=== PATIENT | female | born 1945 | race Caucasian/White ===

== ENCOUNTER → 2020-12-01 10:56 | Outpatient (POV) | payer MEDICARE, OTHER, SELFPAY | PROVIDERS: Visit Provider Dermatology | DX: Z00.00 Encounter for general adult medical examination without abnormal findings (principal) ==

== ENCOUNTER 2022-03-25 13:48 | Emergency (ER) | payer MEDICARE, OTHER, SELFPAY ==
[2022-03-25 15:45] VITALS: BP 177/70; PULSE 62; RESP 16; TEMP 36.5; O2SAT 99; BMI 23.0
[2022-03-25 16:08] VITALS: BP 177/70; PULSE 62; RESP 16; TEMP 36.5; O2SAT 99
--- NOTE | 2022-03-25 16:16 | EXP.UTC ---
Discharge Plan Disposition Patient Disposition: Home, Self-Care Condition: Good Prescriptions Prescriptions: New benzonatate [benzonatate] 100 mg capsule 100 mg PO TIDP PRN (Reason: Cough) Qty: 30 0RF methylprednisolone 4 mg Tablets,Dose Pack 4 mg PO DIRECTED Qty: 21 0RF cefdinir 300 mg capsule 300 mg PO BID Qty: 20 0RF No Action atorvastatin 20 mg tablet 20 mg PO DAILY Qty: 30 Label Comments: TAKE 1 TABLET BY MOUTH ONCE DAILY furosemide 20 mg tablet 20 mg PO DAILY Qty: 30 Label Comments: TAKE 1 TABLET BY MOUTH ONCE DAILY ranitidine HCl 300 mg tablet 300 mg PO BID Qty: 60 Label Comments: TAKE 1 TABLET BY MOUTH TWICE DAILY sertraline 50 mg tablet 50 mg PO DAILY Qty: 30 Label Comments: TAKE 1 TABLET BY MOUTH ONCE DAILY benzonatate [Tessalon Perles] 100 mg capsule 100 mg PO TID PRN (Reason: cough) Qty: 30 0RF cefuroxime axetil 500 mg tablet 500 mg PO BID 7 Days Qty: 14 0RF albuterol sulfate 90 mcg/actuation HFA aerosol inhaler 1 puff INHALATION Q4-6H PRN (Reason: shortness of breath or wheezing) Qty: 18 0RF Referrals Follow up/Referrals: Victoriano Pena MD [Primary Care Provider] - See instructions Activity Restrictions/Add. Instructions Additional Instructions/Restrictions: Drink plenty of fluids. Take tylenol or ibuprofen for pain or fever. Take the medications as directed. Follow up with your regular doctor. GO TO THE ER FOR ANY WORSENING SYMPTOMS Clinical Impressions Clinical Impression: Otitis media, Sinusitis, Viral syndrome Instructions Patient Instructions: Middle Ear Infection, DI for Sinusitis Discharge ED Provider: Rajat Lazaro [facility] General Stated complaint: sore throat, hard time hearing, cough Mode of Arrival: Ambulatory Source of Information: Patient Limitations: No Limitations Time Seen by Provider: 03/25/22 16:16 Description of Symptoms (Recalled from Triage Doc. by RN): pt c/o sore throat, fever, and ear pain that started yesterday HEENT Symptoms (Recalled from RN notes): Yes (sore throat, ear pain) Resp Symptoms (Recalled from RN notes): No Skin Symptoms (Recalled from RN notes): No MS Symptoms (Recalled from RN notes): No Functional Status (Recalled from RN notes): na History of Present Illness Provider Complaint: She states that she has had bilateral ear pain, sinus congestion, sore throat, and a productive cough for the past 2 days. Related Data Home Medications Medication Instructions Recorded Confirmed atorvastatin 20 mg tablet 20 mg PO DAILY #30 tabs 01/12/19 01/12/19 furosemide 20 mg tablet 20 mg PO DAILY #30 tabs 01/12/19 01/12/19 ranitidine HCl 300 mg tablet 300 mg PO BID #60 tabs 01/12/19 01/12/19 sertraline 50 mg tablet 50 mg PO DAILY #30 tabs 01/12/19 01/12/19 Previous Rx's Medication Instructions Recorded albuterol sulfate 90 mcg/actuation 1 puff inhalation Q4-6H PRN 01/12/19 aerosol inhaler shortness of breath or wheezing #18 grams benzonatate 100 mg capsule 100 mg PO TID PRN cough #30 caps 01/12/19 (Yuli Tran) cefuroxime axetil 500 mg tablet 500 mg PO BID 7 days #14 tabs 01/12/19 benzonatate 100 mg capsule 100 mg PO TIDP PRN Cough #30 caps 03/25/22 cefdinir 300 mg capsule 300 mg PO BID #20 caps 03/25/22 methylprednisolone 4 mg tablets in 4 mg PO DIRECTED #21 tabs 03/25/22 a dose pack Allergies Allergy/AdvReac Type Severity Reaction Status Date / Time No Known Allergies Allergy Verified 03/25/22 15:49 Worker's Comp Is this a Worker's Comp case?: No PFSH PFSH Medical History Anxiety Depression Hypertension Social History Smoking Status: Current every day smoker alcohol intake: current substance use type: denies use current occupational status: retired Travel in the last 8 weeks: Inside the [facility] R
[2022-03-25 16:48] LABS: UTC Influenza A Antigen Negative (Negative); UTC Influenza B Antigen Negative (Negative); UTC Strep Screen (Rapid) Negative (Negative)
[2022-03-25 17:02] LABS: Adenovirus,PCR Not Detected (NotDetected); Bordetella Pertussis Not Detected (NotDetected); Chlamydophila Pneumoniae, PCR Not Detected (NotDetected); Coronavirus 19, PCR Not Detected (NotDetected); Coronavirus 229E Not Detected (NotDetected); Coronavirus NL63 Not Detected (NotDetected); Coronavirus OC43 Not Detected (NotDetected); Coronovirus HKU1,PCR Not Detected (NotDetected); Human Metapneumovirus Not Detected (NotDetected); Influenza A, PCR Not Detected (NotDetected); Influenza AH1, 2009 Not Detected (NotDetected); Influenza AH1, PCR Not Detected (NotDetected); Influenza AH3,PCR Not Detected (NotDetected); Influenza B, PCR Not Detected (NotDetected); Mycoplasma Pneumoniae, PCR Not Detected (NotDetected); Parainfluenza 1, PCR Not Detected (NotDetected); Parainfluenza 2, PCR Not Detected (NotDetected); Parainfluenza 3, PCR Not Detected (NotDetected); Parainfluenza 4, PCR Not Detected (NotDetected); Rhinovirus/Enterovirus Not Detected (NotDetected)
[2022-03-25 20:08] LABS: Respiratory Syncytial Virus Not Detected (NotDetected)
== END 2022-03-25 17:00 | disposition home or self-care (01) ==
PROVIDERS: Emergency Provider Nurse Practitioner Family; PCP Internal Medicine Adolescent Medicine
DX: J32.9 Chronic sinusitis, unspecified (principal); H66.90 Otitis media, unspecified, unspecified ear
CPT/HCPCS: 87581; 87632; 87798; 87804; 87880; 99212; C9803; G0463; U0003; U0005

== ENCOUNTER → 2022-09-27 10:04 | Outpatient (CLI) | payer MEDICARE, OTHER, SELFPAY ==
[2022-09-27 10:26] LABS: Basophils % 0.4 % (0.1-2.0); Eosinophils # 0.2 K/mm3 (0.0-0.4); Eosinophils % 3.7 % (0.1-12.0); Hematocrit 37.6 % (37.0-47.0); Hemoglobin 12.1 g/dL (12.2-16.2); Lymphocytes # 1.4 K/mm3 (0.7-4.5); Lymphocytes % 24.9 % (10-50); Mean Corpuscular HGB Conc 32.2 g/dL (31.8-35.4); Mean Corpuscular Hemoglobin 30.8 pg (27.0-31.2); Mean Corpuscular Volume 95.7 fl (81-99); Mean Platelet Volume 9.3 fl (7.4-10.4); Monocytes # 0.3 K/mm3 (0.1-1.0); Monocytes % 5.6 % (1.7-9.3); Neutrophils # 3.6 K/mm3 (1.8-7.8); Neutrophils % 65.3 % (37.0-80.0); Platelet Count 174 K/mm3 (142-424); Red Blood Count 3.93 M/mm3 (4.20-5.40); Red Cell Distribution Width 13.5 % (11.5-17.5); White Blood Count 5.4 K/mm3 (4.8-10.8)
[2022-09-27 10:59] LABS: Alanine Aminotransferase 17 U/L (12-78); Albumin/Globulin Ratio 1.8 (1.1-1.8); Alkaline Phosphatase 95 U/L (38-126); Anion Gap 13.1 mEq/L (5-15); Aspartate Amino Transferase 25 U/L (14-36); Bilirubin,Total 0.8 mg/dl (0.2-1.3); Blood Urea Nitrogen 19 mg/dl (7-17); Calcium 9.2 mg/dl (8.4-10.2); Carbon Dioxide 27 mmol/L (22.0-30.0); Chloride 106 mmol/L (98-107); Chol/HDL Ratio 1.9 (1-3.5); Cholesterol 160 mg/dl (140-200); Estimated Glomerular Filt Rate 70 ml/min (>60); GFR (African American) 85 ML/MIN (>60); Globulin 2.2 g/dL (1.3-3.2); Glucose 89 mg/dl (74-100); HDL Cholesterol 85 mg/dl (40-60); Potassium 4.1 mmoL/L (3.5-5.1); Sodium 142 mmol/L (136-145); Total Protein,Serum 6.2 g/dl (6.3-8.2); Triglycerides 96 mg/dl (30-150); VLDL Cholesterol 19 mg/dL (0-40)
[2022-09-27 11:11] LABS: Direct LDL Cholesterol 64.37 mg/dL (100-129)
[2022-09-27 11:50] LABS: Vitamin B12 300 pg/mL (239-931)
== END ==
PROVIDERS: PCP Nurse Practitioner Family; Visit Provider Nurse Practitioner Family
DX: Z00.00 Encounter for general adult medical examination without abnormal findings (principal); I10 Essential (primary) hypertension; E53.8 Deficiency of other specified B group vitamins
CPT/HCPCS: 36415; 80053; 80061; 82607; 85025

== ENCOUNTER 2024-10-18 16:13 | Outpatient (CLI) | payer MEDICARE, OTHER, SELFPAY ==
--- NOTE | 2024-10-18 16:18 | XR_ITS ---
PROCEDURE INFORMATION: Exam: XR Left Knee Exam date and time: 10/18/2024 4:20 PM Age: 79 years old Clinical indication: Pain; Knee; Left TECHNIQUE: Imaging protocol: Radiologic exam of the left knee. Views: 3 views. COMPARISON: No relevant prior studies available. FINDINGS: Bones/joints: Severe tricompartmental degenerative changes, most severe in the medial compartment. Soft tissues: Normal. IMPRESSION: Severe tricompartmental degenerative changes, most severe in the medial compartment.
--- NOTE | 2024-10-18 16:18 | XR_ITS ---
PROCEDURE INFORMATION: Exam: XR Right Knee Exam date and time: 10/18/2024 4:20 PM Age: 79 years old Clinical indication: Pain; Knee; Right; Additional info: Pain in joint of right and left knee TECHNIQUE: Imaging protocol: Radiologic exam of the right knee. Views: 3 views. COMPARISON: No relevant prior studies available. FINDINGS: Bones/joints: Severe tricompartmental degenerative changes right knee, most severe in the medial compartment with [id number] articulation. Soft tissues: Normal. IMPRESSION: Degenerative changes, mostly in the medial compartment.
== END 2024-10-18 23:59 | disposition home or self-care (01) ==
LOC: RAD 16:15
PROVIDERS: PCP Nurse Practitioner Family; Visit Provider Nurse Practitioner Family
DX: M17.0 Bilateral primary osteoarthritis of knee (principal)
CPT/HCPCS: 73562

== ENCOUNTER 2025-03-11 04:59 | Inpatient (IN) | payer MEDICARE, OTHER, SELFPAY ==
[2025-03-11] VITALS (13 sets, daily range): BP systolic 114–171; BP diastolic 52–81; PULSE 55–79; RESP 16–20; TEMP 36.1–37; O2SAT 97–99; BMI 29.2; BMI 30.9
--- NOTE | 2025-03-11 05:17 | CT_ITS ---
PROCEDURE INFORMATION: Exam: CT Abdomen And Pelvis With Contrast Exam date and time: 03/11/2025 6:03 AM Age: 80 years old Clinical indication: Abdominal pain; Additional info: Ruq pain, nv TECHNIQUE: Imaging protocol: Computed tomography of the abdomen and pelvis with contrast. Radiation optimization: All CT scans at this facility use at least one of these dose optimization techniques: automated exposure control; mA and/or kV adjustment per patient size (includes targeted exams where dose is matched to clinical indication); or iterative reconstruction. Contrast material: ISOVUE; Contrast volume: 75 ml; Contrast route: IV; COMPARISON: No relevant prior studies available. FINDINGS: Liver: Normal variant Chilaiditi's liver. No suspicious liver mass identified. There is trace intrahepatic biliary dilatation. Gallbladder and biliary ducts: Hydropic gallbladder. There are subtle densities seen dependently within the distended gallbladder likely representing cholelithiasis. Trace pericholecystic fluid. Cholecystitis can not be excluded. Consider gallbladder ultrasound. Pancreas: The pancreas is normal in appearance. No evidence of pancreatic ductal dilatation. Spleen: Several punctate old calcified granulomas in the spleen. Adrenal glands: The adrenal glands are normal in appearance. Kidneys and ureters: The kidneys are normal in appearance. Several small simple appearing bilateral renal cysts measuring 9 mm or less. No evidence of hydronephrosis or hydroureter. No nephroureteral calculi are identified. Stomach and bowel: The small bowel loops are not thickened and are nondilated. There is colonic diverticulosis but no evidence of diverticulitis. Mobile cecum. The cecum is located in the right upper quadrant. Appendix: The appendix is normal in appearance. No evidence of appendicitis. Intraperitoneal space: Unremarkable. No free air. No significant fluid collection. Vasculature: Unremarkable. No abdominal aortic aneurysm. Lymph nodes: Unremarkable. No enlarged lymph nodes. Urinary bladder: The urinary bladder is normal in appearance. Reproductive: Unremarkable as visualized. Bones/joints: There is a grade 1 anterolisthesis of L2 over L3 and L3 over L4. No acute osseous lesions. Soft tissues: Small fat containing bilateral inguinal hernias. Tiny fat containing periumbilical hernia. IMPRESSION: 1. Hydropic gallbladder with cholelithiasis and suspected pericholecystic fluid. Acute cholecystitis is not excluded. Consider further evaluation with ultrasound. 2. Normal-variant Chilaiditi's liver. 3. Colonic diverticulosis but no evidence of diverticulitis. COMMENTS: Consistent with the [employer] [place] [employer]'s Incidental Findings Committee white paper (J Am Bin Radiol 2018): Any incidental renal lesion less than 1 cm or classified as too small to characterize, or any incidental cystic renal lesion characterized as simple-appearing, is likely benign. No follow-up imaging is recommended for these lesions per consensus recommendations based on imaging criteria.
--- NOTE | 2025-03-11 05:19 | HMH.EDGENADL ---
Discharge Plan Disposition Chief Complaint: PAIN Prescriptions Prescriptions: No Action atorvastatin 20 mg tablet 20 mg PO DAILY Qty: 30 Patient Comments: TAKE 1 TABLET BY MOUTH ONCE DAILY furosemide 20 mg tablet 20 mg PO DAILY Qty: 30 Patient Comments: TAKE 1 TABLET BY MOUTH ONCE DAILY enalapril maleate 5 mg tablet 5 mg PO DAILY omeprazole 20 mg capsule,delayed release(DR/EC) 20 mg PO DAILY escitalopram oxalate 10 mg tablet 10 mg PO DAILY memantine [Namenda] 5 mg tablet 5 mg PO BID donepezil 5 mg tablet,disintegrating 5 mg PO DAILY cyanocobalamin (vitamin B-12) 1,000 mcg/15 mL liquid 1,000 mcg PO QMONTH omega 7-uqm-lwk-fish oil [Fish Oil] 300-1,000 mg capsule,delayed release(DR/EC) 1 cap PO DAILY Referrals Follow up/Referrals: Arabella Stevenson APRN [Primary Care Provider, Medical] - See instructions Print Language Print Language: Upper Sorbian Discharge ED Provider: Ry Mckeon General Adult HPI <Ry Mckeon MD - Last Filed: 03/11/25 07:04> General Chief complaint: PAIN Stated complaint: R Mid Section Abdominal Pain; Time Seen by Provider: 03/11/25 05:00 History of Present Illness HPI narrative: 80-year-old female with history of hypertension and dementia presents for right upper quadrant pain and nausea vomiting. It started a few hours prior to arrival. Nothing like this has happened before. She reports that she still has her gallbladder and appendix. She denies any recent fever or illness. Reports she has been having normal bowel movements. Related Data Home Medications ?Medication ?Instructions ?Recorded ?Confirmed atorvastatin 20 mg tablet 20 mg PO DAILY #30 tabs 01/12/19 12/10/24 furosemide 20 mg tablet 20 mg PO DAILY #30 tabs 01/12/19 12/10/24 cyanocobalamin (vitamin B-12) 1,000 mcg PO QMONTH 12/10/24 12/10/24 1,000 mcg/15 mL oral liquid donepezil 5 mg disintegrating 5 mg PO DAILY 12/10/24 12/10/24 tablet enalapril maleate 5 mg tablet 5 mg PO DAILY 12/10/24 12/10/24 escitalopram oxalate 10 mg tablet 10 mg PO DAILY 12/10/24 12/10/24 memantine 5 mg tablet (Namenda) 5 mg PO BID 12/10/24 12/10/24 omega 8-fjp-off-fish oil 300 1 cap PO DAILY 12/10/24 12/10/24 mg-1,000 mg capsule,delayed release (Fish Oil) omeprazole 20 mg capsule,delayed 20 mg PO DAILY 12/10/24 12/10/24 release Allergies Allergy/AdvReac Type Severity Reaction Status Date / Time No Known Allergies Allergy Verified 12/10/24 09:53 [facility] <Ry Mckeon MD - Last Filed: 03/11/25 07:04> [facility] Disclaimer: The information contained in this section may have been updated after the patient was seen, as this information can be updated by other users. Medical History Rash and nonspecific skin eruption Depression Anxiety Hypertension Social History Smoking Status: Never smoker alcohol intake: current alcohol intake frequency: a few times a month substance use type: denies use current occupational status: retired Travel in the last 8 weeks?: Inside the [place] Have you lived/traveled outside US in past 30 days?: No Contact w/someone who lives/traveled outside US past 30 days?: No Exposure to someone with infectious disease in past 14 days?: No Do you have a fever (greater than 100.4 F or 38 C)?: No Have you tested positive for COVID-19?: No Exposed to someone with COVID-19 in past 14 days?: No Do you have a sore throat?: No Do you have a cough?: No Do you have any weakness?: No Do you have any diarrhea?: No Are you experiencing any unusual bleeding?: No Do you have any muscle aches/pain?: No Do you have any abdominal pain?: Yes Are you experiencing loss of taste or smell?: No Other Medical History Have you received the Pneumonia Vaccine: No <Ry Mckeon MD - Last Filed: 03/11/25 07:04> ROS Obtained: Yes All systems reviewed & no additional complaints except as documented Physical Exam <Ry Mckeon MD - Last Filed: 03/11/25 07:04> General General appearance: alert and in no apparent distress Head Head exam: atraumatic and normocephalic Eye Eye exam: Present normal appearance, PERRL and EOMI ENT ENT exam: Present normal oropharynx and normal external ear exam Neck Neck exam: Present normal inspection and full ROM Chest Chest inspection: Present normal inspection and symmetric chest wall rise; Absent tenderness Respiratory Respiratory exam: Present normal lung sounds bilaterally; Absent respiratory distress Cardiovascular Cardiovascular exam: Present regular rate and normal rhythm Abdominal Exam Abdominal exam: Present soft and tenderness (Right upper quadrant with guarding); Absent distention or guarding Extremities Exam Extremities exam: Present normal inspection; Absent edema or joint swelling Back Exam Back exam: Present normal inspection; Absent tenderness Neurological Exam Neurological exam: Present alert and oriented X3; Absent motor sensory deficit Psychiatric Psychiatric exam: Present normal affect and normal mood Skin Skin exam: Present warm, dry and normal color Lymphatic Lymphatic Findings: no adenopathy Medical Decision Making <Ry Mckeon MD - Last Filed: 03/11/25 07:04> Medical Records Medical records reviewed: Yes I reviewed the patient's medical records. Screening: Per USPSTF and CDC recommendations, given the prevalence of disease in our region, it is our hospital?s policy to screen for HIV and viral Hepatitis for all patients aged 18 and over and those with ongoing risk factors. Jose Inquiry Pt receiving controlled substance: No Jose was queried for this patient: No Vital Signs: 03/11/25 05:15 03/11/25 05:46 03/11/25 06:08 Temperature 97.0 F L Temperature Source Temporal Artery Scan Pulse Rate 55 L 79 Pulse Rate [Left Radial] 66 Respiratory Rate 18 Blood Pressure Blood Pressure [Right Arm] 171/72 H Blood Pressure Mean Blood Pressure Mean [Right Arm] 105 Blood Pressure Source [Right Arm] Automatic Cuff Blood Pressure Position [Right Arm] Supine 02 Sat by Pulse Oximetry 98 98 Oxygen Delivery Method Room Air Room Air 03/11/25 06:15 03/11/25 06:30 03/11/25 06:34 Temperature Temperature Source Pulse Rate 61 70 58 L Pulse Rate [Left Radial] Respiratory Rate Blood Pressure 153/81 H Blood Pressure [Right Arm] Blood Pressure Mean 105 Blood Pressure Mean [Right Arm] Blood Pressure Source [Right Arm] Blood Pressure Position [Right Arm] 02 Sat by Pulse Oximetry 98 98 98 Oxygen Delivery Method Room Air Room Air 03/11/25 07:00 03/11/25 07:00 Temperature Temperature Source Pulse Rate 58 L Pulse Rate [Left Radial] Respiratory Rate Blood Pressure 151/80 H Blood Pressure [Right Arm] Blood Pressure Mean 103 Blood Pressure Mean [Right Arm] Blood Pressure Source [Right Arm] Blood Pressure Position [Right Arm] 02 Sat by Pulse Oximetry 97 Oxygen Delivery Method Room Air Lab Data Lab results reviewed: Yes I reviewed the patient's lab results. Lab Results 03/11/25 05:05: Urine Color Yellow, Urine Appearance Clear, Urine pH 6.0, Ur Specific [place] >= 1.030, Urine Protein Negative, Urine Glucose (UA) Negative, Urine Ketones Negative, Urine Blood Negative, Urine Nitrate Negative, Urine Bilirubin Negative, Urine Urobilinogen 0.2, Ur Leukocyte Esterase 2+ A, Urine RBC 3-5, Urine WBC 10-20, Ur Squamous Epith Cells Occasional, Urine Bacteria 1+ 03/11/25 05:15: WBC 9.3, RBC 3.56 L, Hgb 11.7 L, Hct 34.7 L, MCV 97.5, MCH 32.9 H, MCHC 33.7, RDW 12.8, Plt Count 196, MPV 10.8 H, Neut % (Auto) 73.8, Lymph % (Auto) 19.2, [place] % (Auto) 5.2, Eos % (Auto) 1.1, Baso % (Auto) 0.5, Neut # (Auto) 6.9, Lymph # (Auto) 1.8, [place] # (Auto) 0.5, Eos # (Auto) 0.1, Baso # (Auto) 0.1, Sodium 125 L, Potassium 4.1, Chloride 104, Carbon Dioxide 27, Anion Gap -1.9 L, BUN 28 H, Creatinine 1.00, Estimated Creat Clear 53, Estimated GFR 54 L, Est GFR ( Amer) 65, Glucose 147 H, Calcium 9.1, Magnesium 1.9, Total Bilirubin 1.0, AST 39 H, ALT 24, Alkaline Phosphatase 104, Total Protein 7.4, Albumin 4.1, Globulin 3.3 H, Albumin/Globulin Ratio 1.2, Lipase 165 03/11/25 05:15 03/11/25 05:15 Orders (Tests/Meds): ED MEDICATIONS Generic Name Dose Route Start Last Admin Trade Name Freq PRN Reason Stop Dose Admin Acetaminophen 650 mg 03/11/25 07:33 Acetaminophen 325mg Tab PO 04/10/25 07:32 Q4HP PRN Fever or Mild Pain (1-3) Hydrocodone Bitart/Acetaminophen 1 tab 03/11/25 07:33 Hydrocodone/Apap 5/325 Mg Tablet PO 04/10/25 07:32 Q4HP PRN Mild to Moderate Pain (1-6) Morphine Sulfate 2 mg 03/11/25 07:33 Morphine 2mg/Ml Syringe IV 04/10/25 07:32 Q2HP PRN Severe Pain (7-10) Sodium Chloride 10 ml 03/11/25 06:10 03/11/25 06:10 Sodium Chloride 0.9% 10ml Syr (Rad Only) IV 04/10/25 06:09 10 ml NEEDED PRN Administration Maintain IV Site Discontinued Medications Generic Name Dose Route Start Last Admin Trade Name Lynette PRN Reason Stop Dose Admin Acetaminophen 1,000 mg 03/11/25 05:17 03/11/25 05:33 Acetaminophen 500mg Tab PO 03/11/25 05:18 1,000 mg ONCE ONE Administration Sodium Chloride 1,000 mls @ 999 mls/hr 03/11/25 05:30 03/11/25 05:29 Sod Chlor 0.9% 1000ml Bag IV 03/11/25 06:30 999 mls/hr .Q1H1M KAYY Administration Iopamidol 75 ml 03/11/25 06:10 03/11/25 06:10 Iopamidol-370 (76%);100ml Bottle IV 03/11/25 06:11 75 ml ONCE ONE Administration Ketorolac Tromethamine 15 mg 03/11/25 05:17 03/11/25 05:31 Ketorolac 30mg/Ml Vial IV 03/11/25 05:18 15 mg ONCE ONE Administration Morphine Sulfate 4 mg 03/11/25 05:17 03/11/25 05:32 Morphine 4mg/Ml Syringe IV 03/11/25 05:18 4 mg ONCE ONE Administration Ondansetron HCl 4 mg 03/11/25 05:17 03/11/25 05:30 Ondansetron 4mg/2ml Vial IV 03/11/25 05:18 4 mg ONCE ONE Administration ORDERS Category Date Time Status CT abdomen pelvis w con Stat Cat Scan 03/11/25 05:17 Completed Consult to General Surgery [CONS] Stat Cons 03/11/25 07:26 Ordered CBC w/Auto Diff [Complete Blood Count Auto Diff] Stat Lab 03/11/25 05:15 Completed CMP [Comprehensive Metabolic Panel] Stat Lab 03/11/25 05:15 Completed Complete Blood Count Auto Diff AMLAB Lab 03/12/25 06:00 Ordered Comprehensive Metabolic Panel AMLAB Lab 03/12/25 06:00 Ordered HIV Combo Stat Lab 03/11/25 05:15 Received Hepatitis C Ab Qual. W/ RFX Stat Lab 03/11/25 05:15 Received Lipase Stat Lab 03/11/25 05:15 Completed Magnesium AMLAB Lab 03/12/25 06:00 Ordered Magnesium Stat Lab 03/11/25 05:15 Completed UA [Urinalysis and Microscopic] Stat Lab 03/11/25 05:05 Completed Blood Culture Stat Micro 03/11/25 05:15 Received Urine Culture Stat Micro 03/11/25 05:05 Received Medical Decision Narrative: 80-year-old female with history of hypertension and dementia presents for right upper quadrant pain with associated nausea and vomiting. History was obtained via interactive discussion with patient, family, chart review. On arrival, patient is [afebrile, hemodynamically stable, satting appropriately, alert, oriented x4, GCS 15], moving all extremities spontaneously. Full physical exam performed and significant for right upper quadrant tenderness Differential includes but is not limited to cholecystitis, choledocholithiasis, symptomatic cholelithiasis gastroenteritis, constipation, bowel obstruction, pancreatitis. Patient was given Tylenol Toradol Zofran morphine fluid bolus for symptomatic management and correction of underlying abnormalities. Workup initiated including CBC CMP lipase blood cultures CT Abdo pelvis IV UA On re-evaluation, patient reports symptomatic resolution. Laboratory workup independently interpreted by me and significant for hyponatremia with sodium 125, last sodium checked was 2 years ago and was 142. BUN mildly elevated. AST minimally elevated, bilirubin and alk phos normal. No leukocytosis. Urinalysis has 10-20 WBCs and 1+ bacteria, negative nitrates. Patient denies any urinary symptoms. Imaging independently interpreted by me and significant for distended gallbladder with small amount of sludge, no pericholecystic fluid.. See radiology read for full review of final results. At this time care handed off to oncoming physician pending CT results. <Juan Pham MD - Last Filed: 03/11/25 08:00> Vital Signs: 03/11/25 05:15 03/11/25 05:46 03/11/25 06:08 Temperature 97.0 F L Temperature Source Temporal Artery Scan Pulse Rate 55 L 79 Pulse Rate [Left Radial] 66 Respiratory Rate 18 Blood Pressure Blood Pressure [Right Arm] 171/72 H Blood Pressure Mean Blood Pressure Mean [Right Arm] 105 Blood Pressure Source [Right Arm] Automatic Cuff Blood Pressure Position [Right Arm] Supine 02 Sat by Pulse Oximetry 98 98 Oxygen Delivery Method Room Air Room Air 03/11/25 06:15 03/11/25 06:30 03/11/25 06:34 Temperature Temperature Source Pulse Rate 61 70 58 L Pulse Rate [Left Radial] Respiratory Rate Blood Pressure 153/81 H Blood Pressure [Right Arm] Blood Pressure Mean 105 Blood Pressure Mean [Right Arm] Blood Pressure Source [Right Arm] Blood Pressure Position [Right Arm] 02 Sat by Pulse Oximetry 98 98 98 Oxygen Delivery Method Room Air Room Air 03/11/25 07:00 03/11/25 07:00 Temperature Temperature Source Pulse Rate 58 L Pulse Rate [Left Radial] Respiratory Rate Blood Pressure 151/80 H Blood Pressure [Right Arm] Blood Pressure Mean 103 Blood Pressure Mean [Right Arm] Blood Pressure Source [Right Arm] Blood Pressure Position [Right Arm] 02 Sat by Pulse Oximetry 97 Oxygen Delivery Method Room Air Lab Data Lab Results 03/11/25 05:05: Urine Color Yellow, Urine Appearance Clear, Urine pH 6.0, Ur Specific Allen >= 1.030, Urine Protein Negative, Urine Glucose (UA) Negative, Urine Ketones Negative, Urine Blood Negative, Urine Nitrate Negative, Urine Bilirubin Negative, Urine Urobilinogen 0.2, Ur Leukocyte Esterase 2+ A, Urine RBC 3-5, Urine WBC 10-20, Ur Squamous Epith Cells Occasional, Urine Bacteria 1+ 03/11/25 05:15: WBC 9.3, RBC 3.56 L, Hgb 11.7 L, Hct 34.7 L, MCV 97.5, MCH 32.9 H, MCHC 33.7, RDW 12.8, Plt Count 196, MPV 10.8 H, Neut % (Auto) 73.8, Lymph % (Auto) 19.2, [place] % (Auto) 5.2, Eos % (Auto) 1.1, Baso % (Auto) 0.5, Neut # (Auto) 6.9, Lymph # (Auto) 1.8, [place] # (Auto) 0.5, Eos # (Auto) 0.1, Baso # (Auto) 0.1, Sodium 125 L, Potassium 4.1, Chloride 104, Carbon Dioxide 27, Anion Gap -1.9 L, BUN 28 H, Creatinine 1.00, Estimated Creat Clear 53, Estimated GFR 54 L, Est GFR ( Amer) 65, Glucose 147 H, Calcium 9.1, Magnesium 1.9, Total Bilirubin 1.0, AST 39 H, ALT 24, Alkaline Phosphatase 104, Total Protein 7.4, Albumin 4.1, Globulin 3.3 H, Albumin/Globulin Ratio 1.2, Lipase 165 Orders (Tests/Meds): ED MEDICATIONS Generic Name Dose Route Start Last Admin Trade Name Freq PRN Reason Stop Dose Admin Acetaminophen 650 mg 03/11/25 07:33 Acetaminophen 325mg Tab PO 04/10/25 07:32 Q4HP PRN Fever or Mild Pain (1-3) Hydrocodone Bitart/Acetaminophen 1 tab 03/11/25 07:33 Hydrocodone/Apap 5/325 Mg Tablet PO 04/10/25 07:32 Q4HP PRN Mild to Moderate Pain (1-6) Morphine Sulfate 2 mg 03/11/25 07:33 Morphine 2mg/Ml Syringe IV 04/10/25 07:32 Q2HP PRN Severe Pain (7-10) Sodium Chloride 10 ml 03/11/25 06:10 03/11/25 06:10 Sodium Chloride 0.9% 10ml Syr (Rad Only) IV 04/10/25 06:09 10 ml NEEDED PRN Administration Maintain IV Site Discontinued Medications Generic Name Dose Route Start Last Admin Trade Name Freq PRN Reason Stop Dose Admin Acetaminophen 1,000 mg 03/11/25 05:17 03/11/25 05:33 Acetaminophen 500mg Tab PO 03/11/25 05:18 1,000 mg ONCE ONE Administration Sodium Chloride 1,000 mls @ 999 mls/hr 03/11/25 05:30 03/11/25 05:29 Sod Chlor 0.9% 1000ml Bag IV 03/11/25 06:30 999 mls/hr .Q1H1M KAYY Administration Iopamidol 75 ml 03/11/25 06:10 03/11/25 06:10 Iopamidol-370 (76%);100ml Bottle IV 03/11/25 06:11 75 ml ONCE ONE Administration Ketorolac Tromethamine 15 mg 03/11/25 05:17 03/11/25 05:31 Ketorolac 30mg/Ml Vial IV 03/11/25 05:18 15 mg ONCE ONE Administration Morphine Sulfate 4 mg 03/11/25 05:17 03/11/25 05:32 Morphine 4mg/Ml Syringe IV 03/11/25 05:18 4 mg ONCE ONE Administration Ondansetron HCl 4 mg 03/11/25 05:17 03/11/25 05:30 Ondansetron 4mg/2ml Vial IV 03/11/25 05:18 4 mg ONCE ONE Administration ORDERS Category Date Time Status CT abdomen pelvis w con Stat Cat Scan 03/11/25 05:17 Completed Consult to General Surgery [CONS] Stat Cons 03/11/25 07:26 Ordered CBC w/Auto Diff [Complete Blood Count Auto Diff] Stat Lab 03/11/25 05:15 Completed CMP [Comprehensive Metabolic Panel] Stat Lab 03/11/25 05:15 Completed Complete Blood Count Auto Diff AMLAB Lab 03/12/25 06:00 Ordered Comprehensive Metabolic Panel AMLAB Lab 03/12/25 06:00 Ordered HIV Combo Stat Lab 03/11/25 05:15 Received Hepatitis C Ab Qual. W/ RFX Stat Lab 03/11/25 05:15 Received Lipase Stat Lab 03/11/25 05:15 Completed Magnesium AMLAB Lab 03/12/25 06:00 Ordered Magnesium Stat Lab 03/11/25 05:15 Completed UA [Urinalysis and Microscopic] Stat Lab 03/11/25 05:05 Completed Blood Culture Stat Micro 03/11/25 05:15 Received Urine Culture Stat Micro 03/11/25 05:05 Received Medical Decision Narrative: 80-year-old female with history of hypertension and dementia presents for right upper quadrant pain with associated nausea and vomiting. History was obtained via interactive discussion with patient, family, chart review. On arrival, patient is [afebrile, hemodynamically stable, satting appropriately, alert, oriented x4, GCS 15], moving all extremities spontaneously. Full physical exam performed and significant for right upper quadrant tenderness Differential includes but is not limited to cholecystitis, choledocholithiasis, symptomatic cholelithiasis gastroenteritis, constipation, bowel obstruction, pancreatitis. Patient was given Tylenol Toradol Zofran morphine fluid bolus for symptomatic management and correction of underlying abnormalities. Workup initiated including CBC CMP lipase blood cultures CT Abdo pelvis IV UA On re-evaluation, patient reports symptomatic resolution. Laboratory workup independently interpreted by me and significant for hyponatremia with sodium 125, last sodium checked was 2 years ago and was 142. BUN mildly elevated. AST minimally elevated, bilirubin and alk phos normal. No leukocytosis. Urinalysis has 10-20 WBCs and 1+ bacteria, negative nitrates. Patient denies any urinary symptoms. Imaging independently interpreted by me and significant for distended gallbladder with small amount of sludge, no pericholecystic fluid.. See radiology read for full review of final results. At this time care handed off to oncoming physician pending CT results. With Abana: Upon assumption of care patient is hemodynamically stable. Workup thus far reviewed by me no significant leukocytosis no transfusable anemia, no NIKKI however there is moderate hyponatremia with a normal baseline in the 140s undetermined acuity given that her last serum level was 2022. Lipase normal urinalysis interpreted by me 10-20 whites but otherwise not overtly consistent with infection. Formal CT read hydropic gallbladder with cholelithiasis suspected pericholecystic fluid, diverticulosis without evidence of diverticulitis. On repeat evaluation patient's pain was well-controlled and was not tender in the right upper quadrant. However given imaging findings, vomiting, abdominal pain, hyponatremia she will benefit from continued evaluation the case was discussed with surgery and they will evaluate the patient, the case was subsequent discussion with hospital medicine regarding management they will admit the patient to their service for continued evaluation at this time. Procedures <Ry Mckeon MD - Last Filed: 03/11/25 07:04> Risk/Benefits of Procedure(s) Were Explained: Yes Critical Care <Ry Mckeon MD - Last Filed: 03/11/25 07:04> Critical Care Time Critical Care Time: No
[2025-03-11 05:22] LABS: Microscopic, Urine URINE MICROSCOPIC (MICROSCOPIC)
[2025-03-11] MEDS: 0.9 % SODIUM CHLORIDE 1000ML 1,000 ML 999 ML IV (05:29)
[2025-03-11] MEDS: ONDANSETRON 4MG/2ML VIAL 4 MG IV (05:30)
[2025-03-11] MEDS: KETOROLAC 30MG/ML VIAL 15 MG IV (05:31)
[2025-03-11 05:32] LABS: Bilirubin,Urine Negative (Negative); Color,Urine YELLOW (Yellow); Glucose,Urine (UA) Negative (Negative); Ketones,Urine Negative (Negative); Leukocyte Esterase,Urine 2+ (Negative); PH,Urine 6.0 (5.0-8.5); Protein,Urine Negative (Negative); Specific Gravity, Urine >= 1.030 (1.005-1.030); Urobilinogen,Urine 0.2 EU/dl (0.2)
[2025-03-11] MEDS: MORPHINE 4MG/ML SYRINGE 4 MG IV (05:32)
[2025-03-11] MEDS: ACETAMINOPHEN 500MG TAB 1000 MG PO (05:33)
[2025-03-11 05:36] LABS: Hematocrit 34.7 % (37.0-47.0); Hemoglobin 11.7 g/dL (12.2-16.2); Immature Granulocytes % 0.2 %; Mean Corpuscular HGB Conc 33.7 g/dL (31.8-35.4); Mean Corpuscular Hemoglobin 32.9 pg (27.0-31.2); Mean Corpuscular Volume 97.5 fl (81-99); Nucleated Red Blood Cells % 0 %; Platelet Count 196 K/mm3 (142-424); Red Blood Count 3.56 M/mm3 (4.20-5.40); Red Cell Distribution Width-SD 45.9 fL; White Blood Count 9.3 K/mm3 (4.8-10.8)
[2025-03-11 05:44] LABS: Alanine Aminotransferase 24 U/L (12-78); Albumin Level 4.1 g/dl (3.5-5.0); Albumin/Globulin Ratio 1.2 (1.1-1.8); Alkaline Phosphatase 104 U/L (38-126); Anion Gap -1.9 mEq/L (5-15); Aspartate Amino Transferase 39 U/L (14-36); Bilirubin,Total 1.0 mg/dl (0.2-1.3); Blood Urea Nitrogen 28 mg/dl (7-17); Calcium 9.1 mg/dl (8.4-10.2); Carbon Dioxide 27 mmol/L (22.0-30.0); Chloride 104 mmol/L (98-107); Creatinine Clearance Estimated 53 mL/min (50-200); Creatinine,Serum 1.00 mg/dl (0.52-1.04); Estimated Glomerular Filt Rate 54 ml/min (>60); GFR (African American) 65 ML/MIN (>60); Globulin 3.3 g/dL (1.3-3.2); Glucose 147 mg/dl (74-100); Lipase 165 U/L (23-300); Magnesium 1.9 mg/dl (1.6-2.3); Potassium 4.1 mmoL/L (3.5-5.1); Sodium 125 mmol/L (136-145); Total Protein,Serum 7.4 g/dl (6.3-8.2)
[2025-03-11 05:54] LABS: Bacteria,Urine 1+ /lpf; Squamous Epithelial Cell,Urine Occasional #/hpf (0-5)
[2025-03-11] MEDS: IOPAMIDOL-370 (76%);100ML BOTTLE 75 ML IV (06:10)
[2025-03-11] MEDS: SODIUM CHLORIDE 0.9% 10ML SYR (RAD ONLY) 10 ML IV (06:10)
--- NOTE | 2025-03-11 07:26 | PC.NURSE ---
, surgeon regional sales engineer, paged for
--- NOTE | 2025-03-11 07:35 | EXP.HP ---
History of Present Illness *Admission Date: 03/11/25 [facility] Disclaimer: The information contained in this section may have been updated after the patient was seen, as this information can be updated by other users. Medical History Rash and nonspecific skin eruption Depression Anxiety Hypertension Social History Smoking Status: Never smoker alcohol intake: current alcohol intake frequency: a few times a month substance use type: denies use current occupational status: retired Travel in the last 8 weeks?: Inside the [place] Have you lived/traveled outside US in past 30 days?: No Contact w/someone who lives/traveled outside [place] past 30 days?: No Exposure to someone with infectious disease in past 14 days?: No Do you have a fever (greater than 100.4 F or 38 C)?: No Have you tested positive for COVID-19?: No Exposed to someone with COVID-19 in past 14 days?: No Do you have a sore throat?: No Do you have a cough?: No Do you have any weakness?: No Do you have any diarrhea?: No Are you experiencing any unusual bleeding?: No Do you have any muscle aches/pain?: No Do you have any abdominal pain?: Yes Are you experiencing loss of taste or smell?: No Other Medical History Have you received the Pneumonia Vaccine: No Meds Home Medications and Allergies Home Medications ?Medication ?Instructions ?Recorded ?Confirmed ?Type atorvastatin 20 mg tablet 20 mg PO DAILY #30 tabs 01/12/19 12/10/24 History furosemide 20 mg tablet 20 mg PO DAILY #30 tabs 01/12/19 12/10/24 History cyanocobalamin (vitamin B-12) 1,000 mcg PO QMONTH 12/10/24 12/10/24 History 1,000 mcg/15 mL oral liquid donepezil 5 mg disintegrating 5 mg PO DAILY 12/10/24 12/10/24 History tablet enalapril maleate 5 mg tablet 5 mg PO DAILY 12/10/24 12/10/24 History escitalopram oxalate 10 mg tablet 10 mg PO DAILY 12/10/24 12/10/24 History memantine 5 mg tablet (Namenda) 5 mg PO BID 12/10/24 12/10/24 History omega 6-nma-ccv-fish oil 300 1 cap PO DAILY 12/10/24 12/10/24 History mg-1,000 mg capsule,delayed release (Fish Oil) omeprazole 20 mg capsule,delayed 20 mg PO DAILY 12/10/24 12/10/24 History release New Prescriptions to Start Prescriptions: Allergies Allergy/AdvReac Type Severity Reaction Status Date / Time No Known Allergies Allergy Verified 12/10/24 09:53 Exam Data for Last 24 hours Vital signs and Labs for Last 24 Hours: Temp Pulse Resp BP Pulse Ox O2 Del Method 97.0 F L 58 L 18 151/80 H 97 Room Air 03/11/25 05:15 03/11/25 07:00 03/11/25 05:15 03/11/25 07:00 03/11/25 07:00 03/11/25 07:00 Laboratory Results - last 24 hr 03/11/25 05:05: Urine Color Yellow, Urine Appearance Clear, Urine pH 6.0, Ur Specific Ferdinand >= 1.030, Urine Protein Negative, Urine Glucose (UA) Negative, Urine Ketones Negative, Urine Blood Negative, Urine Nitrate Negative, Urine Bilirubin Negative, Urine Urobilinogen 0.2, Ur Leukocyte Esterase 2+ A, Urine RBC 3-5, Urine WBC 10-20, Ur Squamous Epith Cells Occasional, Urine Bacteria 1+ 03/11/25 05:15: WBC 9.3, RBC 3.56 L, Hgb 11.7 L, Hct 34.7 L, MCV 97.5, MCH 32.9 H, MCHC 33.7, RDW 12.8, Plt Count 196, MPV 10.8 H, Neut % (Auto) 73.8, Lymph % (Auto) 19.2, [place] % (Auto) 5.2, Eos % (Auto) 1.1, Baso % (Auto) 0.5, Neut # (Auto) 6.9, Lymph # (Auto) 1.8, [place] # (Auto) 0.5, Eos # (Auto) 0.1, Baso # (Auto) 0.1, Sodium 125 L, Potassium 4.1, Chloride 104, Carbon Dioxide 27, Anion Gap -1.9 L, BUN 28 H, Creatinine 1.00, Estimated Creat Clear 53, Estimated GFR 54 L, Est GFR ( Amer) 65, Glucose 147 H, Calcium 9.1, Magnesium 1.9, Total Bilirubin 1.0, AST 39 H, ALT 24, Alkaline Phosphatase 104, Total Protein 7.4, Albumin 4.1, Globulin 3.3 H, Albumin/Globulin Ratio 1.2, Lipase 165 I & O for Last 24 hours: Intake & Output 03/08/25 03/09/25 03/10/25 03/11/25 23:59 23:59 23:59 23:59 Weight 72.575 kg
--- NOTE | 2025-03-11 07:59 | PC.NURSE ---
speaking with via telephone.
--- NOTE | 2025-03-11 08:07 | PC.NURSE ---
I notified HS of the need for a bed to admit to the hospitalist.
--- NOTE | 2025-03-11 08:07 | PC.NURSE ---
er talked to dr arce and dr alejandro and patient will be admitted for obs and surgery will consult, pt has been accepted by hospitalist and battery recharger called for a bed, bottle house cleaners supervisor aware
--- NOTE | 2025-03-11 08:43 | PC.NURSE ---
arrived by w/c from ED
--- NOTE | 2025-03-11 08:43 | HMH.PHAINT1 ---
Pharmacy Intervention Comments: MEDICATION RECONCILIATION COMPLETED ON PATIENT USING EXTERNAL FILL HISTORY FROM PHARMACY. -DIANNE CROWDER, CARMELAD
--- NOTE | 2025-03-11 09:38 | US_ITS ---
FINAL REPORT TECHNIQUE: Multiple transverse and longitudinal images CLINICAL HISTORY: abdominal pain, suspected cholecystitis COMPARISON: CT earlier same day FINDINGS: There are tiny gallstones with sludge. Gallbladder distention is improved since her recent CT scan. No biliary ductal dilatation is appreciated. No fluid collections are seen. Limited portions of the right liver are unremarkable. Limited portions of the right kidney are unremarkable. Pancreas is largely obscured. IMPRESSION: Improved gallbladder distention with redemonstration of cholelithiasis and sludge. No gallbladder wall thickening. Reviewed, Interpreted and Dictated by Em Enrique MD Transcribed by Nini Jurado Authenticated and [facility]
[2025-03-11 09:43] LABS: Hepatitis C Ab Qual. W/ RFX NEGATIVE (Negative)
[2025-03-11 10:11] LABS: NT Pro Brain Natriuretic Pep. 100 pg/mL (0-450)
[2025-03-11 10:40] LABS: Thyroid Stimulating Hormone 0.19 uIU/mL (0.465-4.68)
[2025-03-11 10:43] LABS: Sodium,Urine Random 164.0 mmol/L (30-90)
[2025-03-11] MEDS: MEMANTINE 10MG TABLET 5 MG PO ×2 (11:26→21:05)
[2025-03-11] MEDS: ESCITALOPRAM 10MG TABLET 10 MG PO (11:26)
--- NOTE | 2025-03-11 11:29 | EXP.SURG.CON ---
History of Present Illness *Admission Date: 03/11/25 *Reason for visit:: Possible cholecystitis *History of present illness: This is a 80-year-old female seen in consultation after admission to the hospital service for evaluation regarding possible cholecystitis and hyponatremia. She describes presenting to the emergency department with increasing right upper quadrant pain and concomitant nausea/vomiting. Forwarded from emergency department evaluation: General Chief complaint: PAIN Stated complaint: R Mid Section Abdominal Pain; Time Seen by Provider: 03/11/25 05:00 History of Present Illness HPI narrative: 80-year-old female with history of hypertension and dementia presents for right upper quadrant pain and nausea vomiting. It started a few hours prior to arrival. Nothing like this has happened before. She reports that she still has her gallbladder and appendix. She denies any recent fever or illness. Reports she has been having normal bowel movements. Medical Decision Narrative: 80-year-old female with history of hypertension and dementia presents for right upper quadrant pain with associated nausea and vomiting. History was obtained via interactive discussion with patient, family, chart review. On arrival, patient is [afebrile, hemodynamically stable, satting appropriately, alert, oriented x4, GCS 15], moving all extremities spontaneously. Full physical exam performed and significant for right upper quadrant tenderness Differential includes but is not limited to cholecystitis, choledocholithiasis, symptomatic cholelithiasis gastroenteritis, constipation, bowel obstruction, pancreatitis. Patient was given Tylenol Toradol Zofran morphine fluid bolus for symptomatic management and correction of underlying abnormalities. Workup initiated including CBC CMP lipase blood cultures CT Abdo pelvis IV UA On re-evaluation, patient reports symptomatic resolution. Laboratory workup independently interpreted by me and significant for hyponatremia with sodium 125, last sodium checked was 2 years ago and was 142. BUN mildly elevated. AST minimally elevated, bilirubin and alk phos normal. No leukocytosis. Urinalysis has 10-20 WBCs and 1+ bacteria, negative nitrates. Patient denies any urinary symptoms. Imaging independently interpreted by me and significant for distended gallbladder with small amount of sludge, no pericholecystic fluid.. See radiology read for full review of final results. At this time care handed off to oncoming physician pending CT results. With Abana: Upon assumption of care patient is hemodynamically stable. Workup thus far reviewed by me no significant leukocytosis no transfusable anemia, no NIKKI however there is moderate hyponatremia with a normal baseline in the 140s undetermined acuity given that her last serum level was 2022. Lipase normal urinalysis interpreted by me 10-20 whites but otherwise not overtly consistent with infection. Formal CT read hydropic gallbladder with cholelithiasis suspected pericholecystic fluid, diverticulosis without evidence of diverticulitis. On repeat evaluation patient's pain was well-controlled and was not tender in the right upper quadrant. However given imaging findings, vomiting, abdominal pain, hyponatremia she will benefit from continued evaluation the case was discussed with surgery and they will evaluate the patient, the case was subsequent discussion with hospital medicine regarding management they will admit the patient to their service for continued evaluation at this time. PFSH PFSH Disclaimer: The information contained in this section may have been updated after the patient was seen, as this information can be updated by other users. Medical History Rash and nonspecific skin eruption Depression Anxiety Hypertension Family History (Updated 03/11/25 @ 09:29 by Marcie Mayers RN) Diabetes Cancer Hypertension Social History (Updated 03/11/25 @ 09:30 by Marcie Mayers RN) Smoking Status: Never smoker alcohol intake: current alcohol intake frequency: a few times a month substance use type: denies use current occupational status: retired Travel in the last 8 weeks?: Inside the [place] Have you lived/traveled outside US in past 30 days?: No Contact w/someone who lives/traveled outside US past 30 days?: No Exposure to someone with infectious disease in past 14 days?: No Do you have a fever (greater than 100.4 F or 38 C)?: No Have you tested positive for COVID-19?: No Exposed to someone with COVID-19 in past 14 days?: No Do you have a sore throat?: No Do you have a cough?: No Do you have any weakness?: No Do you have any diarrhea?: No Are you experiencing any unusual bleeding?: No Do you have any muscle aches/pain?: No Do you have any abdominal pain?: Yes Are you experiencing loss of taste or smell?: No Meds Home Medications and Allergies Home Medications ?Medication ?Instructions ?Recorded ?Confirmed ?Type atorvastatin 20 mg tablet 20 mg PO DAILY #30 tabs 01/12/19 03/11/25 History donepezil 5 mg disintegrating 5 mg PO HS 12/10/24 03/11/25 History tablet enalapril maleate 5 mg tablet 5 mg PO DAILY 12/10/24 03/11/25 History escitalopram oxalate 10 mg tablet 10 mg PO DAILY 12/10/24 03/11/25 History omega 6-ipw-ndc-fish oil 300 1 cap PO DAILY 12/10/24 03/11/25 History mg-1,000 mg capsule,delayed release (Fish Oil) omeprazole 20 mg capsule,delayed 20 mg PO DAILY 12/10/24 03/11/25 History release cyanocobalamin (vitamin B-12) 500 mcg IM MONTHLY 03/11/25 03/11/25 History 1,000 mcg/mL injection solution memantine 5 mg tablet 5 mg PO BID 03/11/25 03/11/25 History New Prescriptions to Start Prescriptions: Allergies Allergy/AdvReac Type Severity Reaction Status Date / Time No Known Allergies Allergy Verified 12/10/24 09:53 Exam (Inpt) Vital signs and Labs for Last 24 Hours: Temp Pulse Resp BP Pulse Ox O2 Del Method 98.6 F 56 L 20 141/75 H 99 Room Air 03/11/25 08:27 03/11/25 08:27 03/11/25 08:27 03/11/25 08:27 03/11/25 08:00 03/11/25 09:00 Laboratory Results - last 24 hr 03/11/25 05:05: Urine Color Yellow, Urine Appearance Clear, Urine pH 6.0, Ur Specific [place] >= 1.030, Urine Protein Negative, Urine Glucose (UA) Negative, Urine Ketones Negative, Urine Blood Negative, Urine Nitrate Negative, Urine Bilirubin Negative, Urine Urobilinogen 0.2, Ur Leukocyte Esterase 2+ A, Urine RBC 3-5, Urine WBC 10-20, Ur Squamous Epith Cells Occasional, Urine Bacteria 1+, Urine Sodium 164.0 H 03/11/25 05:15: WBC 9.3, RBC 3.56 L, Hgb 11.7 L, Hct 34.7 L, MCV 97.5, MCH 32.9 H, MCHC 33.7, RDW 12.8, Plt Count 196, MPV 10.8 H, Neut % (Auto) 73.8, Lymph % (Auto) 19.2, [place] % (Auto) 5.2, Eos % (Auto) 1.1, Baso % (Auto) 0.5, Neut # (Auto) 6.9, Lymph # (Auto) 1.8, [place] # (Auto) 0.5, Eos # (Auto) 0.1, Baso # (Auto) 0.1, Sodium 125 L, Potassium 4.1, Chloride 104, Carbon Dioxide 27, Anion Gap -1.9 L, BUN 28 H, Creatinine 1.00, Estimated Creat Clear 53, Estimated GFR 54 L, Est GFR ( Amer) 65, Glucose 147 H, Calcium 9.1, Magnesium 1.9, Total Bilirubin 1.0, AST 39 H, ALT 24, Alkaline Phosphatase 104, NT-Pro-B Natriuret Pep 100, Total Protein 7.4, Albumin 4.1, Globulin 3.3 H, Albumin/Globulin Ratio 1.2, Lipase 165, TSH 0.19 L, HCV Ab TINO w/Rflx PCR Qn Negative, HIV Ag/Ab Combo Qual Negative I & O for Labs for Last 24 Hours: Intake & Output 03/08/25 03/09/25 03/10/25 03/11/25 11:59 11:59 11:59 11:59 Intake Total 1000 / 1000 Balance 1000 / 1000 Weight 160 lb Constitutional: no acute distress Respiratory: Absent respiratory distress Cardiac: Absent Tachycardia GI: Present soft; Absent tenderness or rebound Comments:: Currently without significant tenderness to palpation; however, she describes just getting some pain medicine . Results Labs 03/11/25 05:15 03/11/25 05:15 Labs: Laboratory Results - last 24 hr 03/11/25 05:05: Urine Color Yellow, Urine Appearance Clear, Urine pH 6.0, Ur Specific [place] >= 1.030, Urine Protein Negative, Urine Glucose (UA) Negative, Urine Ketones Negative, Urine Blood Negative, Urine Nitrate Negative, Urine Bilirubin Negative, Urine Urobilinogen 0.2, Ur Leukocyte Esterase 2+ A, Urine RBC 3-5, Urine WBC 10-20, Ur Squamous Epith Cells Occasional, Urine Bacteria 1+, Urine Sodium 164.0 H 03/11/25 05:15: WBC 9.3, RBC 3.56 L, Hgb 11.7 L, Hct 34.7 L, MCV 97.5, MCH 32.9 H, MCHC 33.7, RDW 12.8, Plt Count 196, MPV 10.8 H, Neut % (Auto) 73.8, Lymph % (Auto) 19.2, [place] % (Auto) 5.2, Eos % (Auto) 1.1, Baso % (Auto) 0.5, Neut # (Auto) 6.9, Lymph # (Auto) 1.8, [place] # (Auto) 0.5, Eos # (Auto) 0.1, Baso # (Auto) 0.1, Sodium 125 L, Potassium 4.1, Chloride 104, Carbon Dioxide 27, Anion Gap -1.9 L, BUN 28 H, Creatinine 1.00, Estimated Creat Clear 53, Estimated GFR 54 L, Est GFR ( Amer) 65, Glucose 147 H, Calcium 9.1, Magnesium 1.9, Total Bilirubin 1.0, AST 39 H, ALT 24, Alkaline Phosphatase 104, NT-Pro-B Natriuret Pep 100, Total Protein 7.4, Albumin 4.1, Globulin 3.3 H, Albumin/Globulin Ratio 1.2, Lipase 165, TSH 0.19 L, HCV Ab TINO w/Rflx PCR Qn Negative, HIV Ag/Ab Combo Qual Negative Imaging CT scan - abdomen: report reviewed and image reviewed CT scan - pelvis: report reviewed and image reviewed Assessment and Plan *Assessment and plan (1) Acute calculous cholecystitis: Problem Comment: Currently with minimal symptomatology. White blood cell count normal. LFTs essentially normal. Status: Acute Category: Medical Code(s): K80.00 - Calculus of gallbladder with acute cholecystitis without obstruction Plan: Continue overall management as per primary service. Follow-up results of formal right upper quadrant ultrasound. Antibiotics as per primary service. 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 (3) Hyponatremia: Status: Acute Category: Medical Code(s): E87.1 - Hypo-osmolality and hyponatremia Plan: Management as per primary service
[2025-03-11] MEDS: LISINOPRIL 5MG TABLET 5 MG PO (11:33)
--- NOTE | 2025-03-11 14:12 | P.HP_ITS ---
<Statement entered by Rajat Simmons MD - 03/11/25 15:04> Rounded on patient after nurse practitioner. Personally examined and interviewed patient. Agree with exam findings and care plan as documented. History of Present Illness *Admission Date: 03/11/25 *Reason for visit:: Hyponatremia, abdominal pain, N/V *History of present illness: Ms. Snider is a 80-year-old female who presented to the emergency department with complaints of right upper quadrant pain, nausea, and vomiting. Per patient report she started experiencing pain around 3 AM and it was progressively getting worse. She had multiple episodes of vomiting and continues to have nausea. She has a known primary medical history of GERD, dementia, mood disorder, hypertension, and hyperlipidemia. Workup in the emergency department was significant for hyponatremia with a sodium of 125, urinalysis showing WBCs 10?20, 1+ leuk esterase, 1+ bacteria. CT abdomen/pelvis showed distended gallbladder with small amount of sludge. Patient denies fever, chills, diarrhea, chest pain, shortness of breath. [facility] Disclaimer: The information contained in this section may have been updated after the carley pfeiffer was seen, as this information can be updated by other users. Medical History Rash and nonspecific skin eruption Depression Anxiety Hypertension Family History (Updated 03/11/25 @ 09:29 by Marcie Mayers RN) Other Cancer Diabetes Hypertension Social History (Updated 03/11/25 @ 09:30 by Marcie Mayers RN) Smoking Status: Never smoker alcohol intake: current alcohol intake frequency: a few times a month substance use type: denies use current occupational status: retired Travel in the last 8 weeks?: Inside the [place] Have you lived/traveled outside US in past 30 days?: No Contact w/someone who lives/traveled outside US past 30 days?: No Exposure to someone with infectious disease in past 14 days?: No Do you have a fever (greater than 100.4 F or 38 C)?: No Have you tested positive for COVID-19?: No Exposed to someone with COVID-19 in past 14 days?: No Do you have a sore throat?: No Do you have a cough?: No Do you have any weakness?: No Do you have any diarrhea?: No Are you experiencing any unusual bleeding?: No Do you have any muscle aches/pain?: No Do you have any abdominal pain?: Yes Are you experiencing loss of taste or smell?: No Other Medical History Have you received the Flu Vaccine for this season: Yes Have you received the Pneumonia Vaccine: Yes Review of Systems *Gastrointestinal Gastrointestinal: Denies diarrhea, Reports nausea and Reports vomiting *Genitourinary Genitourinary: Denies dysuria, Denies urinary hesitancy and Denies urinary urgency Meds Home Medications and Allergies Home Medications ?Medication ?Instructions ?Recorded ?Confirmed ?Type atorvastatin 20 mg tablet 20 mg PO DAILY #30 tabs 12/3003/11/25 History donepezil 5 mg disintegrating 5 mg PO HS 12/10/2403/01 History tablet enalapril maleate 5 mg tablet 5 mg PO DAILY 12/10/24 1 05/11/24 History escitalopram oxalate 10 mg tablet 10 mg PO DAILY 12/1003/11/25 History omega 5-yua-bdk-fish oil 300 1 cap PO DAILY 12/10/24 1 05/11/24 History mg-1,000 mg capsule,delayed release (Fish Oil) omeprazole 20 mg capsule,delayed 20 mg PO DAILY 03/11/25 History release cyanocobalamin (vitamin B-12) 500 mcg IM MONTHLY 03/1103/11/25 History 1,000 mcg/mL injection solution memantine 5 mg tablet 5 mg PO BID 03/11/25 5 History New Prescriptions to Start Prescriptions: Allergies Allergy/AdvReac Type Severity Reaction Status Date / Time No Known Allergies Allergy Verified 12/10/24 09:53 Exam Data for Last 24 hours Vital signs and Labs for Last 24 Hours: Temp Pulse Resp BP Pulse Ox O2 Del Method 97.8 F 60 19 157/73 H 99 Room Air 03/11/25 12:00 03/11/25 12:00 03/11/25 12:00 03/11/25 12:00 03/11/25 12:00 03/11/25 12:00 Laboratory Results - last 24 hr 03/11/25 05:05: Urine Color Yellow, Urine Appearance Clear, Urine pH 6.0, Ur Specific [place] >= 1.030, Urine Protein Negative, Urine Glucose (UA) Negative, Urine Ketones Negative, Urine Blood Negative, Urine Nitrate Negative, Urine Bilirubin Negative, Urine Urobilinogen 0.2, Ur Leukocyte Esterase 2+ A, Urine RBC 3-5, Urine WBC 10-20, Ur Squamous Epith Cells Occasional, Urine Bacteria 1+, Urine Sodium 164.0 H 03/11/25 05:15: WBC 9.3, RBC 3.56 L, Hgb 11.7 L, Hct 34.7 L, MCV 97.5, MCH 32.9 H, MCHC 33.7, RDW 12.8, Plt Count 196, MPV 10.8 H, Neut % (Auto) 73.8, Lymph % (Auto) 19.2, [place] % (Auto) 5.2, Eos % (Auto) 1.1, Baso % (Auto) 0.5, Neut # (Auto) 6.9, Lymph # (Auto) 1.8, [place] # (Auto) 0.5, Eos # (Auto) 0.1, Baso # (Auto) 0.1, Sodium 125 L, Potassium 4.1, Chloride 104, Carbon Dioxide 27, Anion Gap -1.9 L, BUN 28 H, Creatinine 1.00, Estimated Creat Clear 53, Estimated GFR 54 L, Est GFR ( Amer) 65, Glucose 147 H, Calcium 9.1, Magnesium 1.9, Total Bilirubin 1.0, AST 39 H, ALT 24, Alkaline Phosphatase 104, NT-Pro-B Natriuret Pep 100, Total Protein 7.4, Albumin 4.1, Globulin 3.3 H, [place] min/Globulin Ratio 1.2, Lipase 165, TSH 0.19 L, HCV Ab TINO w/Rflx PCR Qn Negative, HIV Ag/Ab Combo Qual Negative I & O for Last 24 hours: Intake & Output 03/08/25 03/09/25 03/10/25 03/11/25 23:59 23:59 23:59 23:59 Intake Total 1000 / 1000 Balance 1000 / 1000 Weight 76.657 kg Constitutional Constitutional: no acute distress, obese and cooperative *Routine HEENT Exam Head: Present normocephalic Eye: Present EOMI and PERRL ENT: Present mucous membranes moist *Routine Neck Exam Neck: Present supple; Absent lymphadenopathy *Routine Respiratory Exam Respiratory: Present CTA bilaterally *Routine Cardiovascular Exam Cardiovascular: Present RRR *Routine Abdominal Exam Abdominal: Present soft and normoactive bowel sounds; Absent tenderness *Routine Rectal Exam Rectal:: deferred *Routine Genitalia Exam Genitalia:: deferred *Routine Extremities Exam Extremities: Absent cyanosis, clubbing or edema *Routine Skin Exam Skin: Present warm; Absent rash *Routine Neurological Exam Neurological: Present alert and oriented X3 Assessment and Plan *Assessment and plan (1) Right upper quadrant pain: Status: Acute Category: Medical Code(s): R10.11 - Right upper quadrant pain (2) Nausea and vomiting: Status: Acute Category: Medical Code(s): R11.2 - Nausea with vomiting, unspecified (3) Acute calculous cholecystitis: Problem Comment: Currently with minimal symptomatology. White blood cell count normal. LFTs essentially normal. Status: Acute Category: Medical Code(s): K80.00 - Calculus of gallbladder with acute cholecystitis without obstruction (4) Hyponatremia: Status: Acute Category: Medical Code(s): E87.1 - Hypo-osmolality and hyponatremia (5) Abnormal finding on urinalysis: Status: Acute Category: Medical Code(s): R82.90 - Unspecified abnormal findings in urine Plan Ms. Snider is a 80-year-old female who presented to the emergency department with complaints of right upper quadrant pain, nausea, and vomiting. Per patient report she started experiencing pain around 3 AM and it was progressively getting worse. She had multiple episodes of vomiting and continues to have nausea. She has a known primary medical history of GERD, dementia, mood disorder, hypertension, and hyperlipidemia. Workup in the emergency department was significant for hyponatremia with a sodium of 125, urinalysis showing WBCs 10?20, 2+ leuk esterase, 1+ bacteria. CT abdomen/pelvis showed distended gallbladder with small amount of sludge. Patient denies fever, chills, diarrhea, chest pain, shortness of breath. Dr. Zazueta, general surgery, was consulted by the ER for possible cholecystitis. Hospital medicine at that time was also consulted for admission due to hyponatremia, acute abdominal pain, nausea, vomiting. I agreed to admit the patient. Plan of care as follows: #RUQ abdominal pain #Nausea vomiting #Possible cholecystitis ?Upon my assessment of the patient, she denies abdominal pain. No pain to palpation noted. She denies currently feeling nauseous or any more episodes of vomiting. Patient was given Zofran, 1 L IV fluids, Toradol, morphine, and Tylenol in the ED. ?Dr. Zazueta assessed patient and feels she may need her gallbladder out if she continues to have pain, nausea, vomiting. Will advance patient's diet and see how she tolerates p.o. intake. ?Right upper quadrant ultrasound shows improved gallbladder distention with redemonstration of cholelithiasis and sludge. No gallbladder wall thickening. ?No leukocytosis noted, normal kidney function, blood cultures pending. ?Morphine 2 mg to every 2 hours as needed, [place] every 4 hours as needed ordered as needed for pain. Monitoring for toxicity. #Hyponatremia ? Patient found to be hyponatremic on admission, sodium 125. Patient's last sodium noted in her chart in 2022, was 142. Patient's urine sodium elevated at 164. Patient placed on a fluid restriction of 1 L daily. Recheck sodium this afternoon and in the morning. #Abnormal urinalysis ? UA shows 2+ leuk esterase, WBC 10-20, 1+ bacteria. Patient denies dysuria, urinary frequency. Will give ceftriaxone 1 g daily until urine culture results. #Dementia: Continue memantine 5 mg twice daily, donepezil 5 mg at bedtime, escitalopram 10 mg daily. #GERD: Continue omeprazole 20 mg daily. #Hypertension/hyperlipidemia: Continue atorvastatin 20 mg daily and enalapril 5 mg daily. Full code Regular diet?fluid restriction 1 L every 24 hour Ambulate as tolerated-PT/OT ordered for evaluation VTE?IPC's
[2025-03-11 14:29] LABS: Anion Gap 8.2 mEq/L (5-15); Blood Urea Nitrogen 24 mg/dl (7-17); Calcium 9.1 mg/dl (8.4-10.2); Carbon Dioxide 26 mmol/L (22.0-30.0); Chloride 106 mmol/L (98-107); Creatinine Clearance Estimated 56 mL/min (50-200); Creatinine,Serum 1.00 mg/dl (0.52-1.04); Estimated Glomerular Filt Rate 54 ml/min (>60); GFR (African American) 65 ML/MIN (>60); Glucose 123 mg/dl (74-100); Potassium 4.2 mmoL/L (3.5-5.1); Sodium 136 mmol/L (136-145)
[2025-03-11] MEDS: CEFTRIAXONE 1 GM 1 GM in 0.9 % SODIUM CHLORIDE 50 ML IV (14:44)
--- NOTE | 2025-03-11 18:40 | PC.NURSE ---
patient is a/o x4, remains on room air tolerating well. patient has had no complaints of pain or nausea since arrival to 2nd floor. tolerating regular diet well. family at bedside. call light within reach, no complaints at this time.
[2025-03-11] MEDS: ATORVASTATIN 20MG TABLET 20 MG PO (21:05)
[2025-03-11] MEDS: PANTOPRAZOLE 40MG TABLET 40 MG PO (21:05)
[2025-03-11] MEDS: MELATONIN 5MG TABLET 5 MG PO (21:15)
[2025-03-12] MEDS: ALUMINUM/MAGNESIUM/SIMETHICONE 30ML UDC 30 ML PO (00:07)
[2025-03-12 04:00] VITALS: BP 126/64; PULSE 62; RESP 16; TEMP 36.9; O2SAT 97; BMI 29.9
--- NOTE | 2025-03-12 04:30 | PC.NURSE ---
Patient is pleasantly alert and oriented x4; however, forgetfulness was noted (the patient would repeat some of the same questions or phrases additional times, history of dementia). She was observed to be resting in bed with eyes closed, respirations even and unlabored on room air, and no apparent distress throughout the majority of the night. Melatonin was administered as a sleep aid (see provider notification intervention for 21:01). Her daughter has remained at bedside. She has had complaints of passing excessive gas this shift of which a one time dose of Maalox was given for relief (see provider notification intervention for 23:31). No bowel movement this shift. Patient also reports having a sore spot on the left side of her head due to a recent fall at home; onto a concrete block, she had explained. Scheduled medications were administered per JUN. Physical assessment performed as appropriately for this shift (see nursing shift biophysical intervention). She has not had any complaints of nausea/vomiting urges or abdominal pain thus far this shift, with + without palpating. Tolerating a regular diet very well. Gets up with x1 assistance during ambulation. Hearing aid use. SCDs for VTE prophylaxis. At this time, the patient is resting in bed without any further complaints. No acute changes noted thus far. Call light within reach.
[2025-03-12 06:32] LABS: Hematocrit 28.7 % (37.0-47.0); Immature Granulocytes % 0.2 %; Mean Corpuscular HGB Conc 31.7 g/dL (31.8-35.4); Mean Corpuscular Hemoglobin 31.8 pg (27.0-31.2); Mean Corpuscular Volume 100.3 fl (81-99); Nucleated Red Blood Cells % 0 %; Platelet Count 141 K/mm3 (142-424); Red Blood Count 2.86 M/mm3 (4.20-5.40); Red Cell Distribution Width-SD 46.6 fL; White Blood Count 5.3 K/mm3 (4.8-10.8)
[2025-03-12 06:47] LABS: Alanine Aminotransferase 23 U/L (12-78); Albumin Level 2.9 g/dl (3.5-5.0); Albumin/Globulin Ratio 1.2 (1.1-1.8); Alkaline Phosphatase 84 U/L (38-126); Anion Gap 5.1 mEq/L (5-15); Aspartate Amino Transferase 29 U/L (14-36); Bilirubin,Total 0.4 mg/dl (0.2-1.3); Blood Urea Nitrogen 25 mg/dl (7-17); Calcium 8.5 mg/dl (8.4-10.2); Carbon Dioxide 27 mmol/L (22.0-30.0); Chloride 109 mmol/L (98-107); Creatinine,Serum 1.10 mg/dl (0.52-1.04); Estimated Glomerular Filt Rate 48 ml/min (>60); GFR (African American) 58 ML/MIN (>60); Globulin 2.5 g/dL (1.3-3.2); Glucose 95 mg/dl (74-100); Magnesium 1.8 mg/dl (1.6-2.3); Potassium 4.1 mmoL/L (3.5-5.1); Sodium 137 mmol/L (136-145); Total Protein,Serum 5.4 g/dl (6.3-8.2)
[2025-03-12 06:51] LABS: Hemoglobin 9.2 g/dL (12.2-16.2)
[2025-03-12 07:05] LABS: Creatinine Clearance Estimated 49 mL/min (50-200)
[2025-03-12 07:42] VITALS: BP 144/70; PULSE 60; RESP 16; TEMP 36.6; O2SAT 98
[2025-03-12] MEDS: MEMANTINE 10MG TABLET 5 MG PO (08:21)
[2025-03-12] MEDS: LISINOPRIL 5MG TABLET 5 MG PO (08:21)
[2025-03-12] MEDS: ESCITALOPRAM 10MG TABLET 10 MG PO (08:21)
--- NOTE | 2025-03-12 08:30 | EXP.SURG.PN ---
Subjective Patient reports: no new complaints and feels better Narrative: The patient states that she feels fine . She is hopeful that she will be discharged home today. Exam Data for Last 24 hours Vital signs and Labs for Last 24 Hours: Temp Pulse Resp BP Pulse Ox O2 Del Method 98 F 60 16 144/70 H 98 Room Air 03/12/25 07:42 03/12/25 07:42 03/12/25 07:42 03/12/25 07:42 03/12/25 07:42 03/12/25 07:43 Laboratory Results - last 24 hr 03/11/25 05:05: Urine Sodium 164.0 H 03/11/25 05:15: NT-Pro-B Natriuret Pep 100, TSH 0.19 L, HCV Ab TINO w/Rflx PCR Qn Negative, HIV Ag/Ab Combo Qual Negative 03/11/25 14:05: Sodium 136, Potassium 4.2, Chloride 106, Carbon Dioxide 26, Anion Gap 8.2, BUN 24 H, Creatinine 1.00, Estimated Creat Clear 56, Estimated GFR 54 L, Est GFR ( Amer) 65, Glucose 123 H, Calcium 9.1 03/12/25 04:36: WBC 5.3 D, RBC 2.86 L, Hgb 9.2 L D, Hct 28.7 L, MCV 100.3 H, MCH 31.8 H, MCHC 31.7 L, RDW 12.7, Plt Count 141 L D, MPV 10.7 H, Neut % (Auto) 61.4, Lymph % (Auto) 27.8, [place] % (Auto) 8.1, Eos % (Auto) 2.1, Baso % (Auto) 0.4, Neut # (Auto) 3.3, Lymph # (Auto) 1.5, [place] # (Auto) 0.4, Eos # (Auto) 0.1, Baso # (Auto) 0.0, Sodium 137, Potassium 4.1, Chloride 109 H, Carbon Dioxide 27, Anion Gap 5.1, BUN 25 H, Creatinine 1.10 H, Estimated Creat Clear 49, Estimated GFR 48 L, Est GFR ( Amer) 58 L, Glucose 95 D, Calcium 8.5, Magnesium 1.8, Total Bilirubin 0.4, AST 29 D, ALT 23, Alkaline Phosphatase 84, Total Protein 5.4 L D, Albumin 2.9 L D, Globulin 2.5, Albumin/Globulin Ratio 1.2 I & O for Last 24 hours: Intake & Output 03/09/25 03/10/25 03/11/25 03/12/25 11:59 11:59 11:59 11:59 Intake Total 1000 / 1000 1070 / 1070 Output Total 0 / 0 Balance 1000 / 1000 1070 / 1070 Weight 160 lb 163 lb Microbiology Reports for the Last 24 Hours: Microbiology 03/11/25 05:20 Blood Blood Culture - Preliminary NO GROWTH AFTER 24 HOURS 03/11/25 05:15 Blood Blood Culture - Preliminary NO GROWTH AFTER 24 HOURS Radiology Reports for the Last 24 Hours: Right upper quadrant ultrasound performed yesterday revealed tiny stones and sludge. No pericholecystic fluid or gallbladder wall thickening noted. Improved distention when compared to CT scan. Constitutional Constitutional: no acute distress *Routine Respiratory Exam Respiratory: Absent respiratory distress *Routine Abdominal Exam Comments: Exam deferred (patient in bathroom/brushing teeth) Progress Note: A&P Assessment and plan (1) Right upper quadrant pain: Status: Resolved Assessment and plan: Significant improvement over the past 24 hours (2) Nausea and vomiting: Status: Resolved Assessment and plan: Essentially resolved (3) Acute calculous cholecystitis: Problem details: Radiographic abnormalities on CT scan less concerning/resolved on follow-up ultrasound. Currently without symptomatology. White blood cell count remains normal. LFTs normal. Status: Ruled-out Assessment and plan: Ultrasound reveals no pericholecystic fluid and no gallbladder wall thickening. Diagnosis of acute calculous cholecystitis doubtful. Okay from surgical standpoint for discharge home with close outpatient follow-up (4) Hyponatremia: Status: Resolved
--- NOTE | 2025-03-12 09:09 | HMH.PHAAMS2 ---
- Antimicrobial Stewardship Review culture & sensitivity review Stewardship interventions: culture & sensitivity review, reviewed - no change (BLOOD AND URINE CX SHOW NO GROWTH. PATIENT ON ROCEPHIN CURRENTLY.)
--- NOTE | 2025-03-12 09:59 | HMH.PTEV ---
Physical Therapy Evaluation Rehab PT IP Evaluation Start: 03/11/25 10:59 Freq: ONCE Status: Active Protocol: Document 03/12/25 09:54 SIVAN (Rec: 03/12/25 09:58 SIVAN [id number]) Subjective/History History History Per H&P: Ms. Snider is a 80-year-old female who presented to the emergency department with complaints of right upper quadrant pain, nausea, and vomiting. Per patient report she started experiencing pain around 3 AM and it was progressively getting worse. She had multiple episodes of vomiting and continues to have nausea. She has a known primary medical history of GERD, dementia, mood disorder, hypertension, and hyperlipidemia. Workup in the emergency department was significant for hyponatremia with a sodium of 125, urinalysis showing WBCs 10?20, 1+ leuk esterase, 1+ bacteria. CT abdomen/ pelvis showed distended gallbladder with small amount of sludge. Patient denies fever, chills, diarrhea, chest pain, shortness of breath. Subjective Subjective Pt lives alone in a mobile home wit 2 MARLENE. Pt normally IND with all mobility with intermittent SPC use. Pt does not drive. [facility] How much help from another person do you currently need... Turning from your None back to your side while in a flat bed without using bedrails? Moving from lying on None back to sitting on the side of a flat bed without using bedrails? Moving to and from a None bed to a chair ( including a wheelchair)? Standing up from a None chair using your arms? (e.g., wheelchair, bedside chair) Walking in hospital None room? Climbing 3-5 steps A little with a railing? Mobility Score 23 Mobility Level [facility] Mobility 7 Walk 25 feet or more Mobility Calculator Rehab PT IP Eval Objective Appearance Patient Behavior Appropriate,Cooperative Patient Orientation Person Difficulty following none instructions Speech Pattern Clear Ambulation Patient Able to Yes Ambulate Ambulation Observation IP General Gait No Deviations/Normal Pattern Observation Ambulation Distance 15 (feet) Ambulation Assistive None Device Ambulation Ability Independent Balance Ability to Arise Able, uses arms to help Sitting Balance Steady, safe Dynamic Sitting Good Balance Ability Dynamic Standing Good Balance Ability Transfers Bed Transfer Ability Independent Sit to Stand Bed Independent Transfer Ability Rehab PT IP prob,goals,plan Problems Date of Evaluation: 03/12/25 Rehab Potential Rehab Potential Innapropriate for Skilled Therapy Discharge Plan PT Discharge Plan Pt presents at her baseline with mobility (IND) and is not appropriate for skilled acute care PT while at [facility] at this time. Eval Complexity Eval Charge Codes 79013 - Low Complexity PHYSICIAN CERTIFICATION: I certify the specified therapy services for Nitza Snider are required, authorized, and reviewed every 30 days.
--- NOTE | 2025-03-12 10:03 | P.DS_ITS ---
<Statement entered by Rajat Simmons MD - 03/12/25 13:19> Rounded on patient after nurse practitioner. Personally examined and interviewed patient. Agree with exam findings and care plan as documented. General Admission date:: 03/11/25 Discharge date: 03/12/25 HPI HPI HPI: Ms. Snidre is a 80-year-old female who presented to the emergency department with complaints of right upper quadrant pain, nausea, and vomiting. Per patient report she started experiencing pain around 3 AM and it was progressively getting worse. She had multiple episodes of vomiting and continues to have nausea. She has a known primary medical history of GERD, dementia, mood disorder, hypertension, and hyperlipidemia. Workup in the emergency department was significant for hyponatremia with a sodium of 125, urinalysis showing WBCs 10?20, 1+ leuk esterase, 1+ bacteria. CT abdomen/pelvis showed distended gallbladder with small amount of sludge. Patient denies fever, chills, diarrhea, chest pain, shortness of breath. Hospital Course Hospital Course Hospital Course: Ms. Snider is a 80-year-old female who presented to the emergency department with complaints of right upper quadrant pain, nausea, and vomiting. Per patient report she started experiencing pain around 3 AM on 03/11/2025 and it was prog ressively getting worse. She had multiple episodes of vomiting and continues to have nausea. She has a known primary medical history of GERD, dementia, mood disorder, hypertension, and hyperlipidemia. Workup in the emergency department was significant for hyponatremia with a sodium of 125, urinalysis showing WBCs 10?20, 2+ leuk esterase, 1+ bacteria. CT abdomen/pelvis showed distended gallbladder with small amount of sludge. Patient denies fever, chills, diarrhea, chest pain, shortness of breath. Dr. Zazueta, general surgery, was consulted by the ER for possible cholecystitis. Hospital medicine at that time was also consulted for admission due to hyponatremia, acute abdominal pain, nausea, vomiting. I agreed to admit the patient. Plan of care as follows: #RUQ abdominal pain, resolved #Nausea/ vomiting, resolved #Possible cholecystitis ?Physical assessment on admission and today both benign. Denies abdominal pain or tenderness to palpation. She has had no more episodes of nausea or vomiting. She has been afebrile and hemodynamically stable. Patient initially on admission was given 1 L fluid bolus, Zofran, morphine, Tylenol in the ED. Patient has not needed any antiemetics or pain medication since admission. ?Dr. Zazueta with general surgery saw the patient. Does not feel her gallbladder is acute. Right upper quadrant ultrasound showed improved gallbladder distention with redemonstration of cholelithiasis and sludge. No gallbladder wall thickening noted. Patient will follow-up as an outpatient with general surgery for possible gallbladder removal if symptoms persist. Patient tolerated p.o. diet without issues. ?No leukocytosis noted, normal kidney function, blood cultures show no growth after 24 hours. #Hyponatremia, resolved ? Patient found to be hyponatremic on admission, sodium 125. Initially placed on a fluid restriction of 1 L daily, repeated sodium 8 hours later and was within normal limits, 136. Discontinued fluid restriction and placed patient on regular diet. Repeat sodium day of discharge 137. Patient should have BMP rechecked at follow-up with PCP. #Abnormal urinalysis ? UA shows 2+ leuk esterase, WBC 10-20, 1+ bacteria. Patient denies dysuria, urinary frequency. Patient was given ceftriaxone 1 g yesterday x 1 dose. Urine culture shows no growth today. #Dementia: Continue memantine 5 mg twice daily, donepezil 5 mg at bedtime, es citalopram 10 mg daily. #GERD: Continue omeprazole 20 mg daily. #Hypertension/hyperlipidemia: Continue atorvastatin 20 mg daily and enalapril 5 mg daily. Total time spent on discharge 32 minutes in counseling, documentation, chart review, and direct care with patient. Exam Data for Last 24 hours Vital signs and Labs for Last 24 Hours: Temp Pulse Resp BP Pulse Ox O2 Del Method 98 F 60 16 144/70 H 98 Room Air 03/12/25 07:42 03/12/25 07:42 03/12/25 07:42 03/12/25 07:42 03/12/25 07:42 03/12/25 07:43 Laboratory Results - last 24 hr 03/11/25 05:05: Urine Sodium 164.0 H 03/11/25 05:15: NT-Pro-B Natriuret Pep 100, TSH 0.19 L 03/11/25 14:05: Sodium 136, Potassium 4.2, Chloride 106, Carbon Dioxide 26, Anion Gap 8.2, BUN 24 H, Creatinine 1.00, Estimated Creat Clear 56, Estimated GFR 54 L, Est GFR ( Amer) 65, Glucose 123 H, Calcium 9.1 03/12/25 04:36: WBC 5.3 D, RBC 2.86 L, Hgb 9.2 L D, Hct 28.7 L, MCV 100.3 H, MCH 31.8 H, MCHC 31.7 L, RDW 12.7, Plt Count 141 L D, MPV 10.7 H, Neut % (Auto) 61.4, Lymph % (Auto) 27.8, [place] % (Auto) 8.1, Eos % (Auto) 2.1, Baso % (Auto) 0.4, Neut # (Auto) 3.3, Lymph # (Auto) 1.5, [place] # (Auto) 0.4, Eos # (Auto) 0.1, Baso # (Auto) 0.0, Sodium 137, Potassium 4.1, Chloride 109 H, Carbon Dioxide 27, Anion Gap 5.1, BUN 25 H, Creatinine 1.10 H, Estimated Creat Clear 49, Estimated GFR 48 L, Est GFR ( Amer) 58 L, Glucose 95 D, Calcium 8.5, Magnesium 1.8, Total Bilirubin 0.4, AST 29 D, ALT 23, Alkaline Phosphatase 84, Total Protein 5.4 L D, Albumin 2.9 L D, Globulin 2.5, Albumin/Globulin Ratio 1.2 I & O for Last 24 hours: Intake & Output 03/09/25 03/10/25 03/11/25 03/12/25 23:59 23:59 23:59 23:59 Intake Total 1889 420 / 420 Output Total 0 / 0 Balance 1889 420 / 420 Weight 76.657 kg 73.936 kg Microbiology Reports for the Last 24 Hours: Microbiology 03/11/25 05:05 Urine,Clean Catch Urine Culture - Final No growth. 03/11/25 05:20 Blood Blood Culture - Preliminary NO GROWTH AFTER 24 HOURS 03/11/25 05:15 Blood Blood Culture - Preliminary NO GROWTH AFTER 24 HOURS Constitutional Constitutional: no acute distress and cooperative *Routine HEENT Exam Head: Present normocephalic Eye: Present EOMI and PERRL ENT: Present mucous membranes moist *Routine Neck Exam Neck: Present supple; Absent lymphadenopathy *Routine Respiratory Exam Respiratory: Present CTA bilaterally and normal respiratory effort *Routine Cardiovascular Exam Cardiovascular: Present RRR *Routine Abdominal Exam Abdominal: Present soft and normoactive bowel sounds; Absent tenderness or distended *Routine Rectal Exam Patient deferred: visual exam *Routine Exam Patient deferred: external exam *Routine Extremities Exam Extremities: Present full ROM; Absent cyanosis, clubbing or edema *Routine Skin Exam Skin: Present intact, dry and warm; Absent rash *Routine Neurological Exam Neurological: Present alert and oriented X3 Results Data Completed and Pending Labs on day of discharge: Labs from last 24 hours 03/12/25 03/11/25 03/11/25 04:36 14:05 05:15 WBC 5.3 D RBC 2.86 L Hgb 9.2 L D Hct 28.7 L MCV 100.3 H MCH 31.8 H MCHC 31.7 L RDW 12.7 Plt Count 141 L D MPV 10.7 H Neut % (Auto) 61.4 Lymph % (Auto) 27.8 [place] % (Auto) 8.1 Eos % (Auto) 2.1 Baso % (Auto) 0.4 Neut # (Auto) 3.3 Lymph # (Auto) 1.5 [place] # (Auto) 0.4 Eos # (Auto) 0.1 Baso # (Auto) 0.0 Sodium 137 136 Potassium 4.1 4.2 Chloride 109 H 106 Carbon Dioxide 27 26 Anion Gap 5.1 8.2 BUN 25 H 24 H Creatinine 1.10 H 1.00 Estimated Creat Clear 49 56 Estimated GFR 48 L 54 L Est GFR ( Amer) 58 L 65 Glucose 95 D 123 H Calcium 8.5 9.1 Magnesium 1.8 Total Bilirubin 0.4 AST 29 D ALT 23 Alkaline Phosphatase 84 NT-Pro-B Natriuret Pep 100 Total Protein 5.4 L D Albumin 2.9 L D Globulin 2.5 Albumin/Globulin Ratio 1.2 TSH 0.19 L Urine Sodium 03/11/25 05:05 WBC RBC Hgb Hct MCV MCH MCHC RDW Plt Count MPV Neut % (Auto) Lymph % (Auto) [place] % (Auto) Eos % (Auto) Baso % (Auto) Neut # (Auto) Lymph # (Auto) [place] # (Auto) Eos # (Auto) Baso # (Auto) Sodium Potassium Chloride Carbon Dioxide Anion Gap BUN Creatinine Estimated Creat Clear Estimated GFR Est GFR ( Amer) Glucose Calcium Magnesium Total Bilirubin AST ALT Alkaline Phosphatase NT-Pro-B Natriuret Pep Total Protein Albumin Globulin Albumin/Globulin Ratio TSH Urine Sodium 164.0 H Preliminary micro results at discharge 03/11/25 05:20 Blood Culture - Preliminary Blood NO GROWTH AFTER 24 HOURS 03/11/25 05:15 Blood Culture - Preliminary Blood NO GROWTH AFTER 24 HOURS DS: Diagnosis Discharge Diagnosis (1) Right upper quadrant pain: Status: Resolved Code(s): R10.11 - Right upper quadrant pain (2) Nausea and vomiting: Status: Resolved Code(s): R11.2 - Nausea with vomiting, unspecified (3) Acute calculous cholecystitis: Status: Ruled-out Code(s): K80.00 - Calculus of gallbladder with acute cholecystitis without obstruction Problem details: Radiographic abnormalities on CT scan less concerning/resolved on follow-up ultrasound. Currently without symptomatology. White blood cell count remains normal. LFTs normal. (4) Hyponatremia: Status: Resolved Code(s): E87.1 - Hypo-osmolality and hyponatremia Meds Home Medications and Allergies Home Medications ?Medication ?Instructions ?Recorded ?Confirmed ?Type atorvastatin 20 mg tablet 20 mg PO DAILY #30 tabs 12/3003/11/25 History donepezil 5 mg disintegrating 5 mg PO HS 12/10/2403/01 History tablet enalapril maleate 5 mg tablet 5 mg PO DAILY 12/10/24 1 05/11/24 History escitalopram oxalate 10 mg tablet 10 mg PO DAILY 12/1003/11/25 History omega 4-miz-qch-fish oil 300 1 cap PO DAILY 12/10/24 1 05/11/24 History mg-1,000 mg capsule,delayed release (Fish Oil) omeprazole 20 mg capsule,delayed 20 mg PO DAILY 03/11/25 History release cyanocobalamin (vitamin B-12) 500 mcg IM MONTHLY 03/1103/11/25 History 1,000 mcg/mL injection solution memantine 5 mg tablet 5 mg PO BID 03/11/25 5 History New Prescriptions to Start Prescriptions: Allergies Allergy/AdvReac Type Severity Reaction Status Date / Time No Known Allergies Allergy Verified 12/10/24 09:53 Discharge Plan Disposition Patient Disposition: Home, Self-Care Condition: Good Discharge Order Discharge Orders: Discharge Order (Routine); Ordered 03/12/25 Ordered By: Annita Castillo Follow up Plan Follow up with: Arabella Stevenson APRN [Primary Care Provider, Medical] - 03/18/25 10:45 am Jamie Zazueta MD [Staff Physician, General Surgery] - 03/19/25 9:45 am Prescriptions/Medication Reconciliation: Continued atorvastatin 20 mg tablet 20 mg PO DAILY Qty: 30 Patient Comments: TAKE 1 TABLET BY MOUTH ONCE DAILY enalapril maleate 5 mg tablet 5 mg PO DAILY omeprazole 20 mg capsule,delayed release(DR/EC) 20 mg PO DAILY escitalopram oxalate 10 mg tablet 10 mg PO DAILY donepezil 5 mg tablet,disintegrating 5 mg PO HS omega 2-ppf-pmq-fish oil [Fish Oil] 300-1,000 mg capsule,delayed release(DR/EC) 1 cap PO DAILY cyanocobalamin (vitamin B-12) 1,000 mcg/mL solution 500 mcg IM MONTHLY Patient Comments: INJECT 0.5 ML INTRAMUSCULARLY ONCE A MONTH memantine 5 mg tablet 5 mg PO BID Patient Comments: TAKE ONE TABLET (5 MG) BY MOUTH TWICE DAILY Problem Reconciliation Problems Reviewed?: Yes Patient Discharge Instructions ACTIVITY: Continue current activity DIET: advance to your usual diet Stand Alone Forms: [facility] Work Release Patient Instructions: DI for Abdominal Pain in Adults, Hyponatremia in Adults Print Language: Romansh Providers Primary Care Provider: Arabella Stevenson Admit Provider: Rajat Simmons Attending Provider: Rajat Simmons
--- NOTE | 2025-03-14 10:43 | SW/DCPLANNER ---
Phoned patient x2. Left messages with name and call back number each time. Ashley Connell
== END 2025-03-12 10:59 | disposition home or self-care (01) | DRG 641 ==
LOC: ER 05:29 → 2ND 08:29
PROVIDERS: Admitting Provider Internal Medicine Adolescent Medicine; Emergency Provider Emergency Medicine; PCP Nurse Practitioner Family; Visit Provider Internal Medicine Adolescent Medicine
DX: E87.1 Hypo-osmolality and hyponatremia (principal); Q43.3 Congenital malformations of intestinal fixation; R11.2 Nausea with vomiting, unspecified; R10.11 Right upper quadrant pain; K21.9 Gastro-esophageal reflux disease without esophagitis; F03.90 Unspecified dementia, unspecified severity, without behavioral disturbance, psychotic disturbance, mood disturbance, and anxiety; F39 Unspecified mood [affective] disorder; I10 Essential (primary) hypertension; E78.5 Hyperlipidemia, unspecified; R82.90 Unspecified abnormal findings in urine; Z79.899 Other long term (current) drug therapy
CPT/HCPCS: 36415; 74177; 76705; 80048; 80053; 81001; 83690; 83735; 83880; 84443; 84540; 85025; 86803; 87040; 87086; 87389; 97161; 97165; 99285; J0696; J1885; J2270; J2405; J7030; Q9967